=== PATIENT | male | born 1970 | race Caucasian/White ===

== ENCOUNTER 2019-03-14 13:17 | Emergency (ER) | payer MEDICAID, SELFPAY ==
[2019-03-14 13:43] VITALS: BP 124/71; PULSE 65; RESP 18; TEMP 36.6; O2SAT 98
--- NOTE | 2019-03-14 15:59 | ED.GENADUL_ITS ---
Discharge Plan Disposition Patient Disposition: AGAINST MEDICAL ADVICE Discharge Details Chief Complaint: Cellulitis Clinical Impression: Cellulitis of left lower leg Primary Care Provider: Marilee Morton ED Provider: Josse Oconnell Home Meds and New Rx's Prescriptions: New ciprofloxacin HCl 500 mg tablet 500 mg PO BID Qty: 20 RF: 0 cephalexin [Keflex] 500 mg capsule 500 mg PO QID Qty: 40 RF: 0 Discharge Instructions Additional Instructions: You are leaving AGAINST MEDICAL ADVICE and may or may have lifestyle modifying disease. Please be sure to take the full course of antibiotic as prescribed. Return to the ER at any time for further treatment. Stand Alone Forms: Work Release Discharge Data Discharge Date/Time-TO BE ENTERED AT DEPARTURE: 03/14/19 17:55 Medical Decision Making <Jack Simpson NP - Last Filed: 03/15/19 08:02> Patient presenting to the emergency department for concern of left foot infection. Patient reports that he had a rock cut in his boot 2 weeks ago and made nothing of it. Over the past 3 days he has noted significant swelling and erythema to the dorsal aspect of his foot, significant swelling to the fourth toe, and severe pain and discomfort. Patient denies any injury trauma, IV drug use, other areas of complaint. Physical exam shows a significantly edematous left fourth toe with excoriations and purulence noted in between third and fourth digit. There is also significant amount of erythema and swelling to the dorsal aspect of the foot. Plan to do blood work, blood cultures, and radiological imaging of the foot for concern of cellulitis. Review of CBC shows leukocytosis, after second set of blood cultures were drawn patient started on IV Cefazolin patient states that he is previously been on Keflex. <Josse Oconnell MD - Last Filed: 03/14/19 21:06> Care signed out by JERONIMO Simpson. Please see JERONIMO Simpson's note regarding initial ED presentation and course. Plan at signout was to follow-up on x-ray and labs and reassess the patient for disposition. X-ray of the left foot interpreted by radiology: Mild soft tissue swelling along the region of the metatarsal phalangeal joints. No definite fracture or bony erosion. Labs reviewed and leukocytosis noted I reassessed the patient. He has swelling and erythema of his left foot tracking up his foot above the ankle. I think the patient would benefit from IV antibiotics. I explained my concerns and plan to the patient. I had a discussion with the patient about my diagnostic/treatment plan. Patient declines plan and wishes to leave against medical advise. I reiterated my c oncerns to the patient and explained the risks of leaving prior to completion of workup and treatment. I specifically emphasized the possibility of life- threatening or lifestyle modifying disease that would not be appropriately treated if they leave. Patient verbalized understanding of my concerns and the potential for life threatening or lifestyle modifying disease. Patient has capacity to make informed decision. I again explained my concerns and urged the patient to stay for treatment as outlined. Patient continued to refuse. I then discussed potential less ideal alternatives to diagnostic/treatment plan as outlines and patient refused. I recommended that the patient follow-up with primary care physician RANDY or return to the Emergency Department at any time for further treatment. I will do the best thing I can for the patient and prescribe oral coverage. I explained to him that this is suboptimal treatment. He verbalized understanding. We will cover with ciprofloxacin for fresh water exposure as well as Keflex. Patient has penicillin allergy but has tolerated Ancef here today. HPI <Jack Simpson NP - Last Filed: 03/15/19 08:02> General Mode of arrival: ambulatory . Date/Time Provider Initiated Documentation: 03/14/19 13:54 . Limitations to Documentation: no limitations . Information obtained by: patient and RN notes reviewed . History of Present Illness 48 year old M presents to the emergency department with the chief complaint of Left foot infection, described as severe, with intensity rated at 7. Quality is described as aching, and is localized to the left and lower extremity. Patient started experiencing this week(s) (2) and it has been constant. Patient did receive the following treatments prior to arrival, other (Leftover clindamycin 150 mg couple times a day) Related Data Home Medications Medication Instructions Recorded Confirmed cephalexin [Keflex] 500 mg PO QID #40 cap 03/14/19 ciprofloxacin HCl 500 mg PO BID #20 tab 03/14/19 Previous Rx's Medication Instructions Recorded cephalexin [Keflex] 500 mg PO QID #40 cap 03/14/19 ciprofloxacin HCl 500 mg PO BID #20 tab 03/14/19 Allergies Allergy/AdvReac Type Severity Reaction Status Date / Time Penicillins Allergy Intermediate Unverified 03/14/19 13:46 General Stated Complaint: Cellulitis PHILIPPE: 3 Review of Systems <Jack Simpson NP - Last Filed: 03/15/19 08:02> Constitutional Reports chills and Reports fever(s) Cardiovascular Denies chest pain Integumentary/Breasts Reports as per HPI, Reports erythema and Reports skin swelling PFSH <Jack Simpson NP - Last Filed: 03/15/19 08:02> Social History Smoking/Tobacco Use Status: Current every day Drug use: Daily Substance use type: marijuana Do you feel safe at home: Yes Do you feel safe in your relationship?: Yes Exam <Jack Simpson NP - Last Filed: 03/15/19 08:02> Const General: cooperative, comfortable and no acute distress Orientation: alert, awake and oriented x3 Resp Effort & Inspection: normal respiratory effort and able to speak in complete sentences Cardio Rate: regular rate Rhythm: regular rhythm Extrem Left lower extremity: ankle Details: normal to inspection and foot Details: tenderness Location: of another digit Location: the 4th digit, edema Location: of the dorsal foot (Diffuse), vascular exam Details: dorsalis pedis pulse present and posterior tibial pulse present, motor-sensory exam Details: two point discrimination normal and light-touch normal and other (Purulent drainage and crusting in between third and fourth with erythema) Course <Jack Simpson NP - Last Filed: 03/15/19 08:02> Vital Signs Temperature 36.6 C 03/14/19 13:43 Pulse 65 03/14/19 13:43 Respiratory Rate 18 03/14/19 13:43 Blood Pressure 124/71 03/14/19 13:43 Pulse Oximetry 98 03/14/19 13:43 Temperature 36.6 C 03/14/19 13:43 Temperature Source Temporal Artery Scan 03/14/19 13:43 Pulse 65 03/14/19 13:43 Respiratory Rate 18 03/14/19 13:43 Blood Pressure 124/71 03/14/19 13:43 Blood Pressure Position Sitting 03/14/19 13:43 Pulse Oximetry 98 03/14/19 13:43 Oxygen Delivery Method Room Air 03/14/19 13:43 Oxygen Flow Rate 0 03/14/19 13:43 Pain Level 7 03/14/19 13:43 Lab/Test Results Lab/Test Results: 03/14/19 15:34 Blood Blood Culture - Pending 03/14/19 15:34 Blood Blood Culture - Pending Sign Out <Jack Simpson NP - Last Filed: 03/15/19 08:02> Sign Out Data: Sign Out Comment: Patient signed out to Dr. Josse Oconnell pending x-ray results, further labs. Last updated by Jack Simpson NP at 03/14/19 16:29
[2019-03-14 16:04] LABS: Abs Immature Grans 0.03 k/cumm (0.0-0.09); Absolute Basophil Count 0.06 k/cumm (0.0-0.2); Absolute Eosinophil Count 0.18 k/cumm (0.0-0.7); Absolute Lymphocyte Count 2.93 k/cumm (1.2-3.4); Absolute Monocyte Count 1.42 k/cumm (0.11-0.7); Basophils % 0.4; Eosinophils % 1.2; HCT 46.4 % (40.0-50.0); HGB 15.8 g/dL (13.5-17.5); Immature Grans % 0.2; Lymphocytes % 19.8; Mean Corp. HGB Concentration 34.1 g/dL (32.0-36.0); Mean Corpuscular Hemoglobin 30.2 pg (27.0-33.0); Mean Corpuscular Volume 88.5 fL (80-95); Mean Platelet Volume 10.2 fL (8.0-11.0); Monocytes % 9.6; Neutrophils % 68.8; Platelet Count 243 x1000/uL (130-400); RBC 5.24 m/cumm (4.50-6.00); RBC Distribution Width 14.1 % (11.8-14.1); White Blood Cell Count 14.82 k/cumm (4.4-10.8)
--- NOTE | 2019-03-14 16:09 | DI.RAD_ITS ---
SYMPTOM/DIAGNOSIS: 4TH DIGIT INFECTION. LEFT FOOT: 03/14 Three views were obtained. There is soft tissue swelling of the 4th toe. No specific bony abnormality seen. If there is a clinical suspicion of osteomyelitis additional evaluation with MR or bone scan may be considered.
[2019-03-14 16:27] LABS: ALT 15 U/L (12-78); AST 5 U/L (15-37); Albumin 4.3 g/dL (3.4-5.0); Alkaline Phosphatase 67 U/L (46-116); Anion Gap 11.3 mmol/L (3-11); BUN 11 mg/dL (7-18); Bilirubin, Total 0.7 mg/dL (0.2-1.0); CO2 25.7 mmol/L (21.0-32.0); CREATININE 0.71 mg/dL (0.70-1.30); Calcium 9.5 mg/dL (8.5-10.1); Chloride 102 mmol/L (98-107); Glucose 96 mg/dL (70-100); Sodium 139 mmol/L (136-145); Total Protein 7.8 g/dL (6.4-8.2)
--- NOTE | 2019-03-14 16:29 | DI.VRAD_ITS ---
EXAM: XR Left Foot Complete EXAM DATE/TIME: 03/14/2019 4:07 PM CLINICAL HISTORY: 48 years old, male; Patient HX: Swelling of left foot, 4th digit infection. No known trauma, no surgeries. TECHNIQUE: Imaging protocol: XR Left foot. Views: 3 or more views. COMPARISON: No relevant prior studies available. FINDINGS: Bones/joints: No definite fracture or bony erosion. Mild hallux valgus is noted. No dislocation. Soft tissues: Mild soft tissue swelling along the region of the metatarsophalangeal joints. IMPRESSION: 1. Mild soft tissue swelling along the region of the metatarsophalangeal joints. 2. No definite fracture or bony erosion. Dictated and Authenticated by: Rosales Martinez MD. Ordering:LUCIEN Santiago MD
[2019-03-14 17:49] VITALS: BP 116/67; PULSE 68; RESP 18; TEMP 37; O2SAT 95
[2019-03-14 17:55] VITALS: BP 116/67; PULSE 68; RESP 18; TEMP 37; O2SAT 95
== END 2019-03-14 17:55 | disposition left against medical advice (07) ==
PROVIDERS: Nurse Practitioner Family; Emergency Provider Student in an Organized Health Care Education/Training Program; PCP Nurse Practitioner Family
DX: L03.116 Cellulitis of left lower limb (principal)
CPT/HCPCS: 36415; 80053; 87040; 96365; 99284; 73630; 85025; J0690

== ENCOUNTER 2019-08-26 17:54 | Emergency (ER) | payer MEDICAID, SELFPAY ==
[2019-08-26 18:01] VITALS: BP 147/88; PULSE 98; RESP 18; TEMP 36.8; O2SAT 98
--- NOTE | 2019-08-26 18:09 | ED.GENADUL_ITS ---
Discharge Plan Disposition Patient Disposition: HOME Condition: Good Discharge Details Chief Complaint: Orthopedic Clinical Impression: Pain in right thigh, Muscle strain Primary Care Provider: Marilee Morton ED Provider: Kleber Colon Home Meds and New Rx's Prescriptions: New acetaminophen [Mapap Extra Strength] 500 MG tablet 1,000 mg PO Q6H 5 Days Qty: 60 RF: 0 ibuprofen [Motrin IB] 200 MG tablet 600 mg PO Q6H 5 Days Qty: 60 RF: 0 Discontinued acetaminophen [Tylenol] 325 mg Tablet 650 mg PO PRN PRNRF: 0 ibuprofen 200 mg Tablet 400 mg PO PRN PRNRF: 0 Discharge Instructions Instructions: Muscle Strain (ED) Additional Instructions: At this time your x-ray shows no evidence of fracture for your knee or hip or pelvis. I do suspect that you partially tore 1 of your muscles on the inside of your thigh. Please use the crutches every day for the next 1 to 2 weeks to help in the healing process. Please continue to use Tylenol and Motrin. If you not have improvement of your symptoms he may benefit from consultation with beauty specialist. If you notice any worsening of your symptoms, or any new symptoms such as vomiting, diarrhea, fever, chills, shortness of breath, chest pain, numbness, weakness, or fainting , please return immediately to the emergency department for reevaluation. Please follow up with your primary care provider as soon as possible for reassessment and reevaluation. As always, it was a pleasure participating in your medical care today. Stand Alone Forms: Work Release Referrals: Marilee Morton, [employer] [Primary Care Provider] - Medical Decision Making This is a pleasant 49-year-old male with a past medical history of tobacco use who presents for right medial groin pain and thigh pain. 3 weeks ago the patient slipped on the ice and did a split, and immediately had pain on the medial right aspect of his thigh. Since then the pain has continued and gotten slightly worse. He continues to work on it though. Tylenol and Motrin improve his symptoms. Now the pain does radiate to his right knee as well. Physical exam demonstrates no focal bony tenderness. There is mild tenderness with adduction of his right thigh, as well as flexion of his right thigh. No inguinal bulge, no scrotal abnormality. Differential is broad but does include gracillis tear, versus osseous pathology in the pelvis versus hip. However I do feel that a muscular strain/tear is likely cause. We will get x-rays to rule out acute process, do feel the patient would benefit from crutches for the time being, as well as orthopedic follow-up for further assessment if continues to have no improvement of his pain over continued time. 7:08 PM X-ray results per virtual radiology show no evidence of fracture or acute process. I do suspect a muscle sprain or partial tear. Will refer to orthopedics if the patient does not have improvement of his symptoms with crutches and rest for the next 1 to 2 weeks. Discussed the importance of continued NSAIDs, as well as close follow-up. Discussed red flags for which to return. At this time there is no clinical evidence of cauda equina syndrome, significant osseous fracture, or neurovascular compromise. No clinical evidence of aneurysm. I have extensively reviewed the treatment plan and discharge instructions with the patient and their family. I have addressed all patient concerns at this time. The patient and family was made aware of what symptoms to monitor for that would warrant a return to the emergency department. Discussed the plan with the patient and family, they demonstrate verbal understanding and agreement with our assessment and plan at this time. FINDINGS: Bones/joints: Normal. Soft tissues: Normal. IMPRESSION: No acute findings. Thank you for allowing us to participate in the care of your patient. Dictated and Authenticated by: Juice Philip MD 08/26/2019 6:46 PM Eastern Time ([place] & [place]) FINDINGS: Bones/joints: Normal. Soft tissues: Normal. IMPRESSION: No acute findings. Thank you for allowing us to participate in the care of your patient. Dictated and Authenticated by: Juice Philip MD 08/26/2019 6:46 PM Eastern Time ([place] & [place]) HPI General Date/Time Provider Initiated Documentation: 08/26/19 17:55 . HPI Narrative: This is a pleasant 49-year-old male with a past medical history of tobacco abuse, who presents today for evaluation of right hip pain. The patient states that 3 weeks ago he was working out in the ice when he slipped and performed a split. Immediately he had mild to moderate pain in his right groin over the proximal to mid medial thigh. Over the last 3 weeks the pain has notably continued and slightly worsened. There is radiation down to his knee but he states that his knee does not otherwise hurt. He denies any new numbness tingling. He does admit to mild weakness with moving his leg likely secondary to pain. He denies any bowel or bladder incontinence, dysuria or hematuria. He denies any numbness or tingling in his groin. Symptoms are improved with Tylenol and Motrin. Worsened with movement. He denies any fever chills or other complaints. No other abnormalities. He denies any bowel or bladder incontinence. Related Data Home Medications Medication Instructions Recorded Confirmed acetaminophen [Mapap Extra 1,000 mg PO Q6H 5 Days #60 tab 08/26/19 Strength] ibuprofen [Motrin Ib] 600 mg PO Q6H 5 Days #60 tab 08/26/19 Previous Rx's Medication Instructions Recorded acetaminophen [Mapap Extra 1,000 mg PO Q6H 5 Days #60 tab 08/26/19 Strength] ibuprofen [Motrin Ib] 600 mg PO Q6H 5 Days #60 tab 08/26/19 Allergies Allergy/AdvReac Type Severity Reaction Status Date / Time Penicillins Allergy Intermediate Unverified 08/26/19 18:04 General Stated Complaint: Orthopedic PHILIPPE: 4 Review of Systems All systems reviewed & are unremarkable except as noted in HPI and below PFSH Social History Smoking/Tobacco Use Status: Current every day Alcohol Intake: current Alcohol Intake frequency: a few times a week Alcohol type: beer Drug use: Daily Substance use type: marijuana Do you feel safe at home: Yes Do you feel safe in your relationship?: Yes Exam Narrative Exam Narrative: 1.Const: Well-nourished, Well-developed, appearing stated age 2.Eyes: PERRL, no conjunctival injection, and symmetrical lids. 3.ENT: Atraumatic external nose and ears. Moist MM. Neck: Symmetric, trachea midline, No thyromegaly. 4.CVS: +S1/S2, No murmurs or gallops. Peripheral pulses 2+ and equal in all extremities. Brisk capillary refill in all extremities. 5.RESP: Unlabored respiratory effort. Clear to auscultation bilaterally. No wheezes rales or rhonchi 6.GI: Soft, Nontender/Nondistended, No hepatosplenomegaly. No guarding or rebound. 7.MSK: Normocephalic/Atraumatic, Extremities w/o deformity. No cyanosis or clubbing. Right hip and thigh: No pain with logroll, no pain or tenderness over the greater trochanter. Mild pain with passive movement and range of motion for the hip. Including internal and external rotation. Additionally the patient is the most notable pain with active flexion of the hip and adduction. No significant pain with extension or abduction. Genital exam was performed with nurse at bedside, no evidence of hernia, no evidence of significant testicular or scrotal tenderness. Normal cremasteric reflex bilaterally. Normal rectal tone, normal perirectal sensation. +2 patellar reflex bilaterally, normal sensation throughout, dorsalis pedis and posterior pulse +2 bilaterally, normal sensation, normal flexion and extension of great toe bilaterally. No calf tenderness. For the medial thigh on the right there is no evidence of bulge, asymmetry, or other significant abnormality. No prasanna weakness. The knee is stable to varus, valgus, and anterior drawer stress. No deformity. Patellar grind test is negative. Jordana test is negative for pain. Patient is able to walk without difficulty. No edema or warmth to the joint. No ttp to the patella, tibial plateau, or fibular head. 8.Skin: Warm, Dry. No rashes or lesions. 9.Neuro: drywall boardhanger II-XII grossly intact. Sensation grossly intact, no focal neurologic deficits. 10.Psych: (AAO) x3. Appropriate mood and affect Course Vital Signs Vital signs: Vital Signs Temperature 36.8 C 08/26/19 18:01 Pulse 98 H 08/26/19 18:01 Respiratory Rate 18 08/26/19 18:01 Blood Pressure 147/88 H 08/26/19 18:01 Pulse Oximetry 98 08/26/19 18:01 Temperature 36.8 C 08/26/19 18:01 Temperature Source Skin 08/26/19 18:01 Pulse 98 H 08/26/19 18:01 Respiratory Rate 18 08/26/19 18:01 Respiratory Effort Non-Labored 08/26/19 18:06 Blood Pressure 147/88 H 08/26/19 18:01 Blood Pressure Position Sitting 08/26/19 18:01 Pulse Oximetry 98 08/26/19 18:01 Oxygen Delivery Method Room Air 08/26/19 18:01 Oxygen Flow Rate 0 08/26/19 18:01 Pain Level 8 08/26/19 18:01
--- NOTE | 2019-08-26 18:27 | DI.RAD_ITS ---
EXAM: XR HIP RT COMPLETE AP PELVIS INDICATION: fall, right hip and knee pain. COMPARISON: No exams were available for comparison TECHNIQUE: 2D digital imaging was performed. FINDINGS: There is no acute fracture or dislocation. Mild degenerative changes are seen in the right hip. The soft tissues are unremarkable. IMPRESSION: No acute fracture or dislocation.
--- NOTE | 2019-08-26 18:32 | DI.RAD_ITS ---
EXAM: XR KNEE RT 3V AP,LAT,DAVION CLINICAL HISTORY: fall, right hip and knee pain. TECHNIQUE: 2D digital imaging was performed. COMPARISON: No exams were available for comparison FINDINGS: BONES: No acute fracture is present. No bony destructive lesion is seen. JOINTS: The knee is normally aligned. No joint effusion is seen. SOFT TISSUE: Normal. IMPRESSION: Unremarkable radiographs of the right knee.
--- NOTE | 2019-08-26 18:47 | DI.VRAD_ITS ---
PROCEDURE INFORMATION: Exam: XR Right Knee Exam date and time: 08/26/2019 6:41 PM Age: 49 years old Clinical indication: Other: Fall, RT hip/knee pain TECHNIQUE: Imaging protocol: XR Right knee. Views: 3 views. COMPARISON: No relevant prior studies available. FINDINGS: Bones/joints: Normal. Soft tissues: Normal. IMPRESSION: No acute findings. Dictated and Authenticated by: Juice Philip MD. Ordering:ERICA Shahid MD
--- NOTE | 2019-08-26 18:56 | DI.VRAD_ITS ---
PROCEDURE INFORMATION: Exam: XR Right Hip with Pelvis when Performed Exam date and time: 08/26/2019 6:41 PM Age: 49 years old Clinical indication: Other: Fall right hip/knee pain TECHNIQUE: Imaging protocol: XR Right hip with pelvis when performed. Views: 2 or 3 views. COMPARISON: CT ABD PELVIS WITH CONTRAST 07/09/2016 5:39 PM FINDINGS: Bones/joints: There is mild joint space narrowing of the hips with supra-acetabular subchondral sclerosis consistent with mild degenerative joint disease. No fracture or dislocation is seen. Multiple foci incidentally noted along the left hemipelvis. Soft tissues: Unremarkable. IMPRESSION: Mild DJD. No fracture seen. Dictated and Authenticated by: Juice Philip MD. Ordering:ERICA Shahid MD
== END 2019-08-26 19:17 | disposition home or self-care (01) ==
PROVIDERS: Emergency Provider Student in an Organized Health Care Education/Training Program; PCP Nurse Practitioner Family
DX: M79.651 Pain in right thigh (principal); S76.911A Strain of unspecified muscles, fascia and tendons at thigh level, right thigh, initial encounter; W00.0XXA Fall on same level due to ice and snow, initial encounter; X50.9XXA Other and unspecified overexertion or strenuous movements or postures, initial encounter
CPT/HCPCS: 73562; 99284; 73502; 99283; E0114

== ENCOUNTER 2019-09-16 03:35 | Outpatient (CLI) | payer MEDICAID, SELFPAY ==
--- NOTE | 2019-09-16 16:02 | DI.MRI_ITS ---
EXAM: MR LOWER JOINT RT WO CLINICAL HISTORY: Right hip injury S79.911A., PAIN TECHNIQUE: Multiplanar multisequence MRI was performed. COMPARISON: XR HIP RT COMPLETE AP PELVIS from 08/26/2019 FINDINGS: There is a large heterogeneous soft tissue mass involving the right abductors, obturators and distal ileal psoas muscles. The mass measures approximately 8 cm x 10 cm x 6 cm. The mass is heterogeneousl y hyperintense on the T2 weighted images and isointense to muscle on the T1 weighted images. The mass involves both the right superior and inferior pubic rami. There is abnormal signal seen in the infe rior superior pubic rami with cystic changes noted. There also appears to be loss of the cortex ante riorly and inferiorly of both the inferior and superior pubic rami. In the right hip, there is a moderate joint effusion. No evidence of a labral tear is seen on this n oncontrast examination. The articular cartilage in the right hip appears unremarkable. There is right pelvic and inguinal adenopathy. There is free fluid in the pelvis. The bladder and prostate gland appear grossly unremarkable. IMPRESSION: Large heterogeneous mass involving the right medial thigh musculature and right pubic bone. The find ings are concerning for neoplasm. Moderate right hip joint effusion. Pelvic ascites.
--- NOTE | 2019-09-16 17:02 | DI.VRAD_ITS ---
PROCEDURE INFORMATION: Exam: MR Right Lower Extremity Joint Without Contrast; Hip Exam date and time: 09/16/2019 4:08 PM Age: 49 years old Clinical indication: Hip; Patient HX: S/P fall last July. Pain right groin pain. TECHNIQUE: Imaging protocol: MR of the Right lower extremity joint without intravenous contrast. Exam focused on the hip. COMPARISON: CR XR HIP RT COMPLETE AP PELVIS 08/26/2019 6:27 PM FINDINGS: Labrum: Unremarkable. No tear. Cartilage: Unremarkable. Fluid: Moderate right hip joint effusion. Bones/joints: See Soft Tissues Finding. Muscles: Unremarkable. Soft tissues: There is a large heterogeneous T2 hyperintense expansile soft tissue mass within the right hip musculature involving the abductors and distal ileus psoas and obturators. It measures approximately 8 cm transverse by 10 cm craniocaudal by 6 cm AP. There is abnormal signal and cystic erosive changes seen within the adjacent right superior and inferior pubic rami, consistent with bony involvement. Lymph nodes: Mild left pelvic and inguinal lymphadenopathy. Intraperitoneal space: There is trace free fluid in the pelvis. Bladder: The bladder is normal. TENDONS: Extensor tendons: Unremarkable. No tear. Flexor tendons: Unremarkable. No tear. Abductor tendons: Unremarkable. No tear. Adductors tendons: Unremarkable. No tear. Rotator tendons: Unremarkable. No tear. IMPRESSION: Complex mass worrisome for neoplasm in the right medial hip and proximal thigh musculature, with involvement of the adjacent right pubic bone. Moderate hip joint effusion. No acute fracture or dislocation. Dictated and Authenticated by: Kaye Rosales MD. Ordering:ALLI Mcarthur MD
== END 2019-09-16 03:55 ==
PROVIDERS: PCP Family Medicine; Visit Provider Orthopaedic Surgery
DX: M25.551 Pain in right hip (principal); S79.911A Unspecified injury of right hip, initial encounter; M25.451 Effusion, right hip; R59.0 Localized enlarged lymph nodes; R18.8 Other ascites; R93.7 Abnormal findings on diagnostic imaging of other parts of musculoskeletal system
CPT/HCPCS: 73721

== ENCOUNTER 2019-10-03 18:04 | Outpatient (REF) | payer MEDICAID, SELFPAY ==
[2019-10-03 14:22] LABS: Abs Immature Grans 0.13 k/cumm (0.0-0.09); Absolute Basophil Count 0.22 k/cumm (0.0-0.2); Absolute Lymphocyte Count 3.48 k/cumm (1.2-3.4); Absolute Monocyte Count 0.83 k/cumm (0.11-0.7); Absolute Neutrophil Count 7.31 k/cumm (1.2-6.7); Basophils % 1.8; Eosinophils % 3.2; HCT 37.7 % (40.0-50.0); HGB 11.9 g/dL (13.5-17.5); Immature Grans % 1.1 %; Lymphocytes % 28.1; Mean Corp. HGB Concentration 31.6 g/dL (32.0-36.0); Mean Corpuscular Hemoglobin 27.9 pg (27.0-33.0); Mean Corpuscular Volume 88.5 fL (80-95); Mean Platelet Volume 8.6 fL (8.0-11.0); Monocytes % 6.7; Neutrophils % 59.1; RBC 4.26 m/cumm (4.50-6.00); White Blood Cell Count 12.37 k/cumm (4.4-10.8)
[2019-10-03 14:43] LABS: Platelet Count 689 x1000/uL (130-400)
[2019-10-03 14:44] LABS: Anisocytosis 1+; Basophilic Stippling Present; Diff Comment RBC Morph Reviewed; Hypochromasia 1+; Poikilocytes 2+; Polychromasia Present
[2019-10-03 14:52] LABS: ALT 117 U/L (16-63); AST 56 U/L (15-37); Albumin 3.2 g/dL (3.4-5.0); Alkaline Phosphatase 90 U/L (46-116); Anion Gap 8.2 mmol/L (3-11); BUN 11 mg/dL (7-18); Bilirubin, Total 0.2 mg/dL (0.2-1.0); C-Reactive Protein 0.53 mg/dL (0.0-0.3); CO2 29.8 mmol/L (21.0-32.0); Calcium 9.2 mg/dL (8.5-10.1); Chloride 101 mmol/L (98-107); Glucose 97 mg/dL (74-106); Potassium 4.8 mmol/L (3.5-5.1); Sodium 139 mmol/L (136-145); Total Protein 6.9 g/dL (6.4-8.2)
[2019-10-04 10:26] LABS: Creatine Kinase 42 U/L (39-308)
== END 2019-10-03 18:24 ==
LOC: LBN 18:04
PROVIDERS: PCP Family Medicine; Visit Provider Family Medicine
DX: R78.81 Bacteremia (principal); D72.829 Elevated white blood cell count, unspecified; M86.9 Osteomyelitis, unspecified
CPT/HCPCS: 80053; 82550; 85025; 86140

== ENCOUNTER 2019-10-10 13:36 | Outpatient (REF) | payer MEDICAID, SELFPAY ==
[2019-10-10 14:23] LABS: HCT 39.3 % (40.0-50.0); HGB 12.6 g/dL (13.5-17.5); Mean Corp. HGB Concentration 32.1 g/dL (32.0-36.0); Mean Corpuscular Hemoglobin 28.2 pg (27.0-33.0); Mean Corpuscular Volume 87.9 fL (80-95); Mean Platelet Volume 9.6 fL (8.0-11.0); Platelet Count 430 x1000/uL (130-400); RBC 4.47 m/cumm (4.50-6.00); RBC Distribution Width 15.7 % (11.8-14.1)
[2019-10-10 14:36] LABS: ALT 36 U/L (16-63); AST 16 U/L (15-37); Albumin 3.3 g/dL (3.4-5.0); Alkaline Phosphatase 75 U/L (46-116); Anion Gap 8.1 mmol/L (3-11); BUN 9 mg/dL (7-18); Bilirubin, Total 0.3 mg/dL (0.2-1.0); C-Reactive Protein 2.13 mg/dL (0.0-0.3); CO2 28.9 mmol/L (21.0-32.0); CREATININE 0.63 mg/dL (0.70-1.30); Calcium 8.7 mg/dL (8.5-10.1); Chloride 101 mmol/L (98-107); Creatine Kinase 36 U/L (39-308); Glucose 129 mg/dL (74-106); Potassium 4.4 mmol/L (3.5-5.1); Sodium 138 mmol/L (136-145); Total Protein 6.9 g/dL (6.4-8.2)
== END 2019-10-10 13:56 ==
LOC: NCHCN 13:36
PROVIDERS: PCP Family Medicine; Visit Provider Family Medicine
DX: M86.18 Other acute osteomyelitis, other site (principal); A41.01 Sepsis due to Methicillin susceptible Staphylococcus aureus; E44.0 Moderate protein-calorie malnutrition
CPT/HCPCS: 80053; 82550; 85027; 86140

== ENCOUNTER 2019-10-17 18:45 | Outpatient (REF) | payer MEDICAID, SELFPAY ==
[2019-10-17 16:42] LABS: Abs Immature Grans 0.03 k/cumm (0.0-0.09); Absolute Basophil Count 0.13 k/cumm (0.0-0.2); Absolute Eosinophil Count 0.59 k/cumm (0.0-0.7); Absolute Lymphocyte Count 2.31 k/cumm (1.2-3.4); Absolute Monocyte Count 0.82 k/cumm (0.11-0.7); Absolute Neutrophil Count 3.05 k/cumm (1.2-6.7); Basophils % 1.9; Eosinophils % 8.5; HCT 39.8 % (40.0-50.0); HGB 12.9 g/dL (13.5-17.5); Immature Grans % 0.4 %; Lymphocytes % 33.3; Mean Corp. HGB Concentration 32.4 g/dL (32.0-36.0); Mean Corpuscular Hemoglobin 28.8 pg (27.0-33.0); Mean Corpuscular Volume 88.8 fL (80-95); Monocytes % 11.8; Neutrophils % 44.1; Platelet Count 322 x1000/uL (130-400); RBC 4.48 m/cumm (4.50-6.00); RBC Distribution Width 16.4 % (11.8-14.1); White Blood Cell Count 6.93 k/cumm (4.4-10.8)
[2019-10-17 17:06] LABS: ALT 28 U/L (16-63); AST 17 U/L (15-37); Albumin 3.6 g/dL (3.4-5.0); Alkaline Phosphatase 71 U/L (46-116); Anion Gap 6.4 mmol/L (3-11); BUN 4 mg/dL (7-18); Bilirubin, Total 0.2 mg/dL (0.2-1.0); C-Reactive Protein 0.83 mg/dL (0.0-0.3); CO2 29.6 mmol/L (21.0-32.0); CREATININE 0.63 mg/dL (0.70-1.30); Calcium 8.8 mg/dL (8.5-10.1); Chloride 100 mmol/L (98-107); Creatine Kinase 62 U/L (39-308); Glucose 105 mg/dL (74-106); Potassium 4.4 mmol/L (3.5-5.1); Sodium 136 mmol/L (136-145); Total Protein 6.9 g/dL (6.4-8.2)
== END 2019-10-17 19:05 ==
LOC: LBN 18:45
PROVIDERS: PCP Family Medicine; Visit Provider Family Medicine
DX: A41.01 Sepsis due to Methicillin susceptible Staphylococcus aureus (principal); M86.18 Other acute osteomyelitis, other site
CPT/HCPCS: 80053; 82550; 85025; 86140

== ENCOUNTER 2019-10-24 15:55 | Outpatient (REF) | payer MEDICAID, SELFPAY ==
[2019-10-24 16:28] LABS: Abs Immature Grans 0.07 k/cumm (0.0-0.09); Absolute Basophil Count 0.13 k/cumm (0.0-0.2); Absolute Eosinophil Count 1.15 k/cumm (0.0-0.7); Absolute Monocyte Count 1.04 k/cumm (0.11-0.7); Absolute Neutrophil Count 5.94 k/cumm (1.2-6.7); Basophils % 1.2; Eosinophils % 10.2; HCT 39.7 % (40.0-50.0); Immature Grans % 0.6 %; Lymphocytes % 25.8; Mean Corp. HGB Concentration 32.7 g/dL (32.0-36.0); Mean Corpuscular Hemoglobin 28.6 pg (27.0-33.0); Mean Corpuscular Volume 87.3 fL (80-95); Mean Platelet Volume 9.5 fL (8.0-11.0); Monocytes % 9.3; Neutrophils % 52.9; Platelet Count 296 x1000/uL (130-400); RBC 4.55 m/cumm (4.50-6.00); RBC Distribution Width 15.9 % (11.8-14.1); White Blood Cell Count 11.23 k/cumm (4.4-10.8)
[2019-10-24 17:06] LABS: ALT 21 U/L (16-63); AST 16 U/L (15-37); Albumin 3.5 g/dL (3.4-5.0); Alkaline Phosphatase 73 U/L (46-116); Anion Gap 8.7 mmol/L (3-11); BUN 3 mg/dL (7-18); Bilirubin, Total 0.3 mg/dL (0.2-1.0); C-Reactive Protein 7.26 mg/dL (0.0-0.3); CO2 28.3 mmol/L (21.0-32.0); CREATININE 0.64 mg/dL (0.70-1.30); Calcium 8.8 mg/dL (8.5-10.1); Chloride 101 mmol/L (98-107); Creatine Kinase 35 U/L (39-308); Glucose 102 mg/dL (74-106); Potassium 4.2 mmol/L (3.5-5.1); Sodium 138 mmol/L (136-145); Total Protein 6.8 g/dL (6.4-8.2)
== END 2019-10-24 16:15 ==
LOC: LBN 15:55
PROVIDERS: PCP Family Medicine; Visit Provider Family Medicine
DX: M86.18 Other acute osteomyelitis, other site (principal); Z79.2 Long term (current) use of antibiotics
CPT/HCPCS: 80053; 82550; 85025; 86140

== ENCOUNTER 2019-10-31 17:12 | Outpatient (REF) | payer MEDICAID, SELFPAY ==
[2019-10-31 17:34] LABS: ALT 18 U/L (16-63); AST 14 U/L (15-37); Albumin 3.5 g/dL (3.4-5.0); Alkaline Phosphatase 65 U/L (46-116); Anion Gap 9.8 mmol/L (3-11); BUN 9 mg/dL (7-18); Bilirubin, Total 0.2 mg/dL (0.2-1.0); C-Reactive Protein 0.63 mg/dL (0.0-0.3); CO2 29.2 mmol/L (21.0-32.0); Calcium 8.4 mg/dL (8.5-10.1); Chloride 101 mmol/L (98-107); Creatine Kinase 47 U/L (39-308); Glucose 118 mg/dL (74-106); Potassium 3.7 mmol/L (3.5-5.1); Sodium 140 mmol/L (136-145); Total Protein 6.8 g/dL (6.4-8.2)
[2019-10-31 18:22] LABS: Abs Immature Grans 0.11 k/cumm (0.0-0.09); Absolute Lymphocyte Count 3.72 k/cumm (1.2-3.4); Absolute Monocyte Count 1.03 k/cumm (0.11-0.7); Basophils % 2.7; Eosinophils % 16.2; HCT 39.8 % (40.0-50.0); HGB 13.1 g/dL (13.5-17.5); Immature Grans % 0.8 %; Lymphocytes % 26.7; Mean Corp. HGB Concentration 32.9 g/dL (32.0-36.0); Mean Corpuscular Hemoglobin 28.4 pg (27.0-33.0); Mean Corpuscular Volume 86.1 fL (80-95); Mean Platelet Volume 9.2 fL (8.0-11.0); Monocytes % 7.4; Neutrophils % 46.2; Platelet Count 363 x1000/uL (130-400); RBC 4.62 m/cumm (4.50-6.00); White Blood Cell Count 13.93 k/cumm (4.4-10.8)
[2019-10-31 18:57] LABS: Absolute Basophil Count 0.38 k/cumm (0.0-0.2); Absolute Eosinophil Count 2.26 k/cumm (0.0-0.7); Absolute Neutrophil Count 6.44 k/cumm (1.2-6.7)
[2019-10-31 20:02] LABS: Diff Comment Diff Reviewed; RBC Morphology Normal
== END 2019-10-31 17:32 ==
LOC: NCHCN 17:12
PROVIDERS: PCP Family Medicine; Visit Provider Family Medicine
DX: A41.01 Sepsis due to Methicillin susceptible Staphylococcus aureus (principal)
CPT/HCPCS: 80053; 82550; 85025; 86140

== ENCOUNTER 2019-11-11 15:12 | Outpatient (REF) | payer MEDICAID, SELFPAY ==
[2019-11-11 19:12] LABS: HCT 42.3 % (40.0-50.0); HGB 13.7 g/dL (13.5-17.5); Mean Corp. HGB Concentration 32.4 g/dL (32.0-36.0); Mean Corpuscular Hemoglobin 27.9 pg (27.0-33.0); Mean Corpuscular Volume 86.2 fL (80-95); Mean Platelet Volume 9.8 fL (8.0-11.0); Platelet Count 371 x1000/uL (130-400); RBC 4.91 m/cumm (4.50-6.00); RBC Distribution Width 16.1 % (11.8-14.1)
[2019-11-11 19:48] LABS: C-Reactive Protein 0.36 mg/dL (0.0-0.3)
[2019-11-11 20:52] LABS: ESR 8 mm/hr (0-15)
== END 2019-11-11 15:32 ==
LOC: NCHCN 15:12
PROVIDERS: PCP Family Medicine; Visit Provider Family Medicine
DX: M86.9 Osteomyelitis, unspecified (principal)
CPT/HCPCS: 85027; 85652; 86140

== ENCOUNTER 2019-12-22 01:01 | Outpatient (CLI) | payer MEDICAID, SELFPAY ==
--- NOTE | 2019-12-22 | DI.MRI_ITS ---
EXAM: MR PELVIS WO/W CLINICAL HISTORY: F/U OSTEOMYELITIS RT HIP AND ASSOCIATED ABSCESS,ONGOING RT GROIN AREA PAIN, M86.9, MASS RT HIP JOINT, M25.851 TECHNIQUE: Multiplanar multisequence MRI of Pelvis was performed. CONTRAST MATERIAL: IV Contrast: mL of Dotarem contrast administered. COMPARISON: MR LOWER JOINT RT WO from 09/16/2019 FINDINGS: There is residual marrow edema seen in the right pubic bone. Otherwise the marrow signal is within n ormal limits. There is also mild residual hyperintense signal seen on the T2 weighted images within the adjacent right adductor muscles and right obturator internus. These areas show mild enhancement following contrast administration. No soft tissue masses are appreciated. No focal fluid collection is seen. IMPRESSION: Significant improvement in the inflammatory changes in the right pelvis. Very mild persistent edema and enhancement is seen in the right pubic bone and the adjacent musculature. No focal fluid collect ion is seen to suggest an abscess. DATA REPOSITORY:
[2019-12-22] MEDS: Normal Saline Flush 10 ML SYR IVP (14:34)
[2019-12-22] MEDS: Gadoterate meglumine 20 ML VIAL 17 ML IVP (14:35)
== END 2019-12-22 01:21 ==
PROVIDERS: PCP Family Medicine; Visit Provider Family Medicine
DX: M25.851 Other specified joint disorders, right hip (principal); R60.0 Localized edema; M86.151 Other acute osteomyelitis, right femur
CPT/HCPCS: 72197

== ENCOUNTER 2020-01-25 00:29 | Outpatient (CLI) | payer MEDICAID, SELFPAY ==
--- NOTE | 2020-01-25 | DI.US_ITS ---
EXAM: US SCROTUM CLINICAL HISTORY: RT TESTICULAR PAIN, N50.811. TECHNIQUE: Scrotal ultrasound performed using grayscale, color-flow and spectral Doppler analysis. COMPARISON: No exams were available for comparison FINDINGS: Right testicle: 4.7 x 2.8 x 3.3 cm Echogenicity: Normal. Contour: Smooth. Mass: None seen. Microlithiasis: None. Hydrocele: None. Variocele: There is a right varicocele. Hernia: No peristalsing bowel loop identified. Epididymis: Normal. 1.0 x 0.8 x 1.4 cm. Left testicle: 4.6 x 2.9 x 3.2 cm Echogenicity: Normal. Contour: Smooth. Mass: None seen. Microlithiasis: None. Hydrocele: None. Variocele: None. Hernia: No peristalsing bowel loop identified. Epididymis: 2.5 x 2.2 x 2.7 mm left epididymal head cyst. DOPPLER: Color: Symmetric and uniform, no hyperemia. Duplex: Bilateral testicular arterial waveforms visualized. IMPRESSION: No evidence of a testicular mass or torsion. Right varicocele and 2.7 mm left epididymal head cyst. DATA REPOSITORY:
== END 2020-01-25 00:49 ==
PROVIDERS: PCP Family Medicine; Visit Provider Family Medicine
DX: N50.811 Right testicular pain (principal); I86.1 Scrotal varices; N50.3 Cyst of epididymis
CPT/HCPCS: 76870

== ENCOUNTER 2022-04-20 14:08 | Emergency (ER) | payer MEDICAID, SELFPAY ==
[2022-04-20 14:14] VITALS: BP 110/66; PULSE 77; RESP 16; TEMP 35.7; O2SAT 95
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
--- NOTE | 2022-04-20 15:29 | NUR.NOTE ---
Dr. Chavez [facility]
--- NOTE | 2022-04-22 10:52 | PDOC.ERCMACT ---
- If Service Date Differs Date of service: 04/22/22 Time of Service: 10:52 Care Management Activity Note Radu is seen in the ED for an injury to his right eye. At the request of ED provider, CM coordinates a referral to [facility] Ophthalmology to assist Radu in obtaining an appointment for further evaluation and treatment.
== END 2022-04-20 16:03 | disposition home or self-care (01) ==
PROVIDERS: Emergency Provider Emergency Medicine; PCP Family Medicine
DX: T15.01XA Foreign body in cornea, right eye, initial encounter (principal); X58.XXXA Exposure to other specified factors, initial encounter
CPT/HCPCS: 65220